=== PATIENT | male | born 1945 | race Caucasian/White ===

== ENCOUNTER → 2024-02-08 06:26 | Day surgery (SDC) | payer MEDICARE, OTHER, SELFPAY ==
[2024-02-08 09:53] LABS: Glucose - Point of Care 102 mg/dl (70-99)
== END ==
LOC: GI 06:26
PROVIDERS: ATTENDING PHYSICIAN Internal Medicine Gastroenterology
DX: K50.10 Crohn's disease of large intestine without complications (principal); D12.2 Benign neoplasm of ascending colon; K63.89 Other specified diseases of intestine; K57.30 Diverticulosis of large intestine without perforation or abscess without bleeding; K64.0 First degree hemorrhoids
CPT/HCPCS: 45385; 45380; 88305; 82962